=== PATIENT | male | born 1985 | race Hispanic/Latino ===

== ENCOUNTER 2022-12-23 16:58 | Emergency (ER) | payer OTHER ==
[~2022-12-23] VITALS: Ht 165.1 cm; Wt 72.6 kg
[2022-12-23 17:11] VITALS: BP 115/74
== END 2022-12-23 17:56 | disposition home or self-care (01) ==
LOC: EDH 16:58
DX: N49.2 Inflammatory disorders of scrotum (principal)
CPT/HCPCS: 99281